=== PATIENT | female | born 1980 | race Native Hawaiian/Other Pacific Islander ===

== ENCOUNTER 2017-09-17 15:04 | Emergency (ER) | payer MEDICAID, OTHER ==
[~2017-09-17] VITALS: Ht 162.6 cm; Wt 54.0 kg
[~2017-09-17 15:04] MED LIST: AMOX500T PO; CIPR0.3S LEFT EAR; IBUP600T26 PO; MEDR4PAK3 PO; PERC10TA27 PO
[2017-09-17 15:07] VITALS: BP 145/104; PULSE 83; RESP 14; TEMP 97.4; O2SAT 98
[2017-09-17] MEDS ORDERED: SODIUM CHLOR 0.9% 1000 ML INJ 1,000 ML IV SCH (15:26)
[2017-09-17] MEDS ORDERED: SODIUM CHLORIDE 0.9% FLUSH 10 ML FLUSH IV FLUSH PRN (15:30)
[2017-09-17] MEDS ORDERED: ETHI1TAB3 PO (15:30)
[2017-09-17] MEDS ORDERED: ALUMINUM/MAGNESIUM/SIMETH 30 ML CUP PO ONE (15:30)
[2017-09-17] MEDS ORDERED: LIDOCAINE VISCOUS 2% SOLN 15 ML UDC PO ONE (15:30)
--- NOTE | 2017-09-17 16:17 | PD ---
HPI Chief Complaint: GI Complaint Time Seen by Provider: 15:26 Travel History International Travel<30 days: No Contact w/Intl Traveler<30days: No Traveled to known affect area: No History of Present Illness HPI 36-year-old female arrives with epigastric abdominal pain. Onset gradual. Severity moderate. No nausea reported. She reports similar pain in the past was diagnosed as gallbladder sludge. She denies fever. Pain is worse with palpation. PFSH Past Medical History Diminished Hearing: No Gastrointestinal Disorders: Yes (GALL STONES) Hepatitis: Yes (A A CHILD) Influenza Vaccination: No ?: Not LMP: 08/30/17 : 1 Para: 1 Past Surgical History Abdominal Surgery: Yes (removal of omentum) Section: Yes Other Surgery: Yes (BREAST REDUCTION, SURGERY FOR ANAL ABCESS AND FISTULA) Social History Alcohol Use: No Tobacco Use: No Substance Use: No Allergies-Medications (Allergen,Severity, Reaction): Coded Allergies: No Known Allergies (Verified Adverse Reaction, Unknown, 09/17/17) Reported Meds & Prescriptions Reported Meds & Active Scripts Active Bactrim DS (Sulfamethoxazole-Trimethoprim) 800-160 Mg Tab 1 Tab PO BID Reported Flor (Drospirenone-Ethinyl Estradiol) 3-0.02 Mg Tab 1 Tab PO DAILY Review of Systems Except as stated in HPI: all other systems reviewed are Neg Physical Exam Narrative GENERAL: 36-year-old female pleasant no acute distress Vital Signs Date Time Temp Pulse Resp B/P (MAP) Pulse Ox O2 Delivery O2 Flow Rate FiO2 09/17/17 15:07 97.4 83 14 145/104 (118) 98 SKIN: Warm and dry. HEAD: Atraumatic. Normocephalic. EYES: Pupils equal and round. No scleral icterus. No injection or drainage. ENT: No nasal bleeding or discharge. Mucous membranes pink and moist. NECK: Trachea midline. No JVD. CARDIOVASCULAR: Regular rate and rhythm. RESPIRATORY: No accessory muscle use. Clear to auscultation. Breath sounds equal bilaterally. GASTROINTESTINAL: Tenderness in the epigastrium. Soft. No rebound or guarding. MUSCULOSKELETAL: Extremities without clubbing, cyanosis, or edema. No obvious deformities. NEUROLOGICAL: Awake and alert. No obvious cranial nerve deficits. Motor grossly within normal limits. Five out of 5 muscle strength in the arms and legs. Normal speech. PSYCHIATRIC: Appropriate mood and affect; insight and judgment normal. Data Data Last Documented VS Vital Signs Date Time Temp Pulse Resp B/P (MAP) Pulse Ox O2 Delivery O2 Flow Rate FiO2 09/17/17 15:07 97.4 83 14 145/104 (118) 98 Orders Orders Complete Blood Count With Diff (09/17/17 15:26) Comprehensive Metabolic Panel (09/17/17 15:26) Lipase (09/17/17 15:26) Urinalysis - C+S If Indicated (09/17/17 15:26) Us Abdomen Gallbladder (09/17/17 ) Iv Access Insert/Monitor (09/17/17 15:26) Ecg Monitoring (09/17/17 15:26) Oximetry (09/17/17 15:26) Sodium Chlor 0.9% 1000 Ml Inj (Ns 1000 M (09/17/17 15:26) Sodium Chloride 0.9% Flush (Ns Flush) (09/17/17 15:30) Al-Mag Hy-Si 40-40-4 Mg/Ml Liq (Mag-Al P (09/17/17 15:30) Lidocaine 2% Viscous (Xylocaine 2% Visco (09/17/17 15:30) Ed Urine Pregnancytest Poc (09/17/17 15:26) Ed Discharge Order (09/17/17 16:43) Urine Culture (09/17/17 15:46) Labs Laboratory Tests Test 09/17/17 15:46 White Blood Count 9.6 TH/MM3 Red Blood Count 4.47 MIL/MM3 Hemoglobin 13.2 GM/DL Hematocrit 37.8 % Mean Corpuscular Volume 84.6 FL Mean Corpuscular Hemoglobin 29.6 PG Mean Corpuscular Hemoglobin Concent 35.0 % Red Cell Distribution Width 13.2 % Platelet Count 272 TH/MM3 Mean Platelet Volume 8.9 FL Neutrophils (%) (Auto) 74.2 % Lymphocytes (%) (Auto) 22.2 % Monocytes (%) (Auto) 2.9 % Eosinophils (%) (Auto) 0.4 % Basophils (%) (Auto) 0.3 % Neutrophils # (Auto) 7.1 TH/MM3 Lymphocytes # (Auto) 2.1 TH/MM3 Monocytes # (Auto) 0.3 TH/MM3 Eosinophils # (Auto) 0.0 TH/MM3 Basophils # (Auto) 0.0 TH/MM3 CBC Comment DIFF FINAL Differential Comment Urine Color YELLOW Urine Turbidity HAZY Urine pH 5.5 Urine Specific [place] 1.019 Urine Protein TRACE mg/dL Urine Glucose (UA) NEG mg/dL Urine Ketones NEG mg/dL Urine Occult Blood MOD Urine Nitrite NEG Urine Bilirubin NEG Urine Urobilinogen LESS THAN 2.0 MG/DL Urine Leukocyte Esterase MOD Urine RBC 18 /hpf Urine WBC 9 /hpf Urine Squamous Epithelial Cells 9 /hpf Urine Bacteria FEW /hpf Urine Mucus FEW /lpf Microscopic Urinalysis Comment CULTURE INDICATED Blood Urea Nitrogen 10 MG/DL Creatinine 0.76 MG/DL Random Glucose 96 MG/DL Total Protein 8.6 GM/DL Albumin 4.2 GM/DL Calcium Level 9.5 MG/DL Alkaline Phosphatase 60 U/L Aspartate Amino Transf (AST/SGOT) 26 U/L Alanine Aminotransferase (ALT/SGPT) 44 U/L Total Bilirubin 0.2 MG/DL Sodium Level 138 MEQ/L Potassium Level 4.1 MEQ/L Chloride Level 103 MEQ/L Carbon Dioxide Level 27.6 MEQ/L Anion Gap 7 MEQ/L Estimat Glomerular Filtration Rate 86 ML/MIN Lipase 185 U/L [facility] Medical Decision Making Medical Screen Exam Complete: Yes Emergency Medical Condition: Yes Differential Diagnosis Constipation, Gastritis, Acute Cholecystitis, Biliary Colic, Pancreatitis, KWAN , Hepatitis, Bowel Obstruction, Cystitis, Mesenteric Ischemia, AAA, Appendicitis , Renal Stone/Hydronephrosis, GERD, perforated viscous Narrative Course CBC & BMP Diagram 09/17/17 15:46 Total Protein 8.6 H, Albumin 4.2, Calcium Level 9.5, Alkaline Phosphatase 60, Aspartate Amino Transf (AST/SGOT) 26, Alanine Aminotransferase (ALT/SGPT) 44, Total Bilirubin 0.2 Urinalysis: possible UTI Lipase 185 Last Impressions Gall Bladder Ultrasound 09/17/17 0000 Signed Impressions: Service Date/Time: Sunday, September 17, 2017 15:43 - CONCLUSION: 1. Cholelithiasis. However, there are no additional imaging features present to indicate acute gallbladder inflammation or obstruction. 2. Hepatic steatosis. Kevin Trujillo MD The patient is resting comfortably and feels better, is alert and in no distress. The patients results and examination findings were discussed. The repeat examination is unremarkable and benign. The history, exam, diagnostic testing, and current condition do not suggest any significant pathology to warrant further testing, continued ED treatment, admission, or surgical evaluation at this point. The vital signs have been stable. The patient does not have uncontrollable pain, intractable vomiting, or other significant symptoms. The patient's condition is stable and appropriate for discharge. The patient will pursue further outpatient evaluation with a primary care physician or other designated or consulting physician as indicated in the discharge instructions. The patient expressed understanding and was agreeable with this plan. Diagnosis Primary Impression: Gallbladder colic Additional Impression: Cystitis Referrals: Raj Duvall MD 2 days Med/Other Pt SpecificInfo: No Change to Meds Scripts Sulfamethoxazole-Trimethoprim (Bactrim DS) 800-160 Mg Tab 1 TAB PO BID for Infection, #6 TAB 0 Refills Prov: Tyrese Gibson MD 09/17/17 Disposition: 01 DISCHARGE HOME Condition: Stable Tyrese Gibson MD Sep 17, 2017 16:17
--- NOTE | 2017-09-17 16:27 | RADRPT ---
EXAM DATE/TIME: 09/17/2017 15:43 [facility] COMPARISON: CT ABDOMEN & PELVIS W CONTRAST, July 06, 2014, 18:07. INDICATIONS : Right upper quadrant pain. MEDICAL HISTORY : Gallstones. SURGICAL HISTORY : section. Breast reduction. Surgery for anal abcess and fistula. ENCOUNTER: Initial ACUITY: 1 day PAIN SCORE: 4/10 LOCATION: Right upper quadrant MEASUREMENTS: LIVER: 17.1 cm length COMMON DUCT: 5 mm RIGHT KIDNEY: 12.5 x 6.5 x 4.1 cm FINDINGS: LIVER: Mild increased echotexture without focal lesion or ductal dilatation. COMMON DUCT: No intraluminal mass or stone visualized. GALLBLADDER: There are multiple stones within the gallbladder. No wall thickening or pericholecystic fluid is pres ent. Sonographic Hunt's sign is negative. PANCREAS: The visualized portions are within normal limits. RIGHT KIDNEY: No evidence of hydronephrosis, stone, or mass. CONCLUSION: 1. Cholelithiasis. However, there are no additional imaging features present to indicate acute gallbl adder inflammation or obstruction. 2. Hepatic steatosis. Kevin Trujillo MD on September 17, 2017 at 16:22 Board Certified Radiologist. This report was verified electronically.
[2017-09-17 16:37] LABS: AUTOMATED NEUTROPHIL # 7.1 TH/MM3 (1.8-7.7); BASOPHIL % 0.3 % (0.0-2.0); EOSINOPHIL % 0.4 % (0.0-4.0); HEMATOCRIT 37.8 % (35.0-46.0); HEMOGLOBIN 13.2 GM/DL (11.6-15.3); LYMPH % 22.2 % (9.0-44.0); LYMPHOCYTE # 2.1 TH/MM3 (1.0-4.8); MEAN CELL VOLUME 84.6 FL (80.0-100.0); MEAN CORPUSCULAR HEMOGLOBIN 29.6 PG (27.0-34.0); MEAN PLATELET VOLUME 8.9 FL (7.0-11.0); MONO % 2.9 % (0.0-8.0); MONOCYTE # 0.3 TH/MM3 (0-0.9); NEUT % 74.2 % (16.0-70.0); PLATELET COUNT 272 TH/MM3 (150-450); RED BLOOD COUNT 4.47 MIL/MM3 (4.00-5.30); RED CELL DISTRIBUTION WIDTH 13.2 % (11.6-17.2); WHITE BLOOD COUNT 9.6 TH/MM3 (4.0-11.0)
[2017-09-17 16:42] LABS: BACTERIA, URINE FEW /hpf; BILIRUBIN, URINE NEG (NEG); BLOOD, URINE MOD (NEG); GLUCOSE,URINE NEG (NEG); KETONE, URINE NEG (NEG); MUCUS URINE FEW /lpf (OCC); NITRITE,URINE NEG (NEG); PH, URINE 5.5 (5.0-8.5); SQUAMOUS EPITHELIAL CELL URINE 9 /hpf (0-5); URINE COLOR YELLOW (YELLW/STRAW); URINE LEUKOCYTE ESTERASE MOD (NEG)
[2017-09-17 17:00] LABS: ALBUMIN 4.2 GM/DL (3.4-5.0); ALT (GPT) 44 U/L (10-53); AST (GOT) 26 U/L (15-37); BICARBONATE 27.6 MEQ/L (21.0-32.0); BLOOD UREA NITROGEN 10 MG/DL (7-18); CALCIUM 9.5 MG/DL (8.5-10.1); CHLORIDE 103 MEQ/L (98-107); CREATININE 0.76 MG/DL (0.50-1.00); GLOMERULAR FILTRATION RATE 86 ML/MIN (>89); GLUCOSE,RANDOM 96 MG/DL (74-106); SODIUM (NA) 138 MEQ/L (136-145)
[2017-09-17 17:02] LABS: ALKALINE PHOSPHATASE 60 U/L (45-117); TOTAL BILIRUBIN ADULT 0.2 MG/DL (0.2-1.0); TOTAL PROTEIN 8.6 GM/DL (6.4-8.2)
[2017-09-17] MEDS ORDERED: BACT800T5 PO (17:09)
== END 2017-09-17 19:04 | disposition home or self-care (01) ==
LOC: NEPC 15:04
DX: K80.20 Calculus of gallbladder without cholecystitis without obstruction (principal); N30.90 Cystitis, unspecified without hematuria
CPT/HCPCS: 76705; 80053; 81001; 83690; 84703; 85025; 87086; 99284; J7030